=== PATIENT | female | born 1945 | race Caucasian/White ===

== ENCOUNTER → 2016-09-11 | Outpatient (CLI) | payer MEDICARE ==
[~2016-09-11] MED LIST: ACTEMRA IV; APIX5TAB PO; ATIVAN PO; ELIQUIS PO; ENAL20TA PO; FAMO-79 PO; FURO20TA3 PO; FURO40TA6 PO; HYDR-3342 PO; ISOS30TA19 PO; ISOSORBIDE PO; LOPE2CAP PO; LORA-445 PO; METO-93 PO; METO25TA91 PO; METOPROLOL PO; NITR0.4T SL; PANT40TA5 PO; POTA20TA89 PO; PROM12.553 RC; SERT100T PO; SERT50TA PO; SERT50TA5 PO; STOMACH MED PO
== END | disposition home or self-care (01) ==
LOC: CFH 10:47
PROVIDERS: ATTEND Radiology Radiation Oncology
DX: C64.1 Malignant neoplasm of right kidney, except renal pelvis (principal); M48.54XA Collapsed vertebra, not elsewhere classified, thoracic region, initial encounter for fracture; I70.0 Atherosclerosis of aorta; J98.11 Atelectasis; R91.8 Other nonspecific abnormal finding of lung field; N30.90 Cystitis, unspecified without hematuria; I25.10 Atherosclerotic heart disease of native coronary artery without angina pectoris; Z90.710 Acquired absence of both cervix and uterus
CPT/HCPCS: 71250; 74176

== ENCOUNTER → 2016-09-15 | Outpatient (CLI) | payer MEDICARE | END | disposition home or self-care (01) | LOC: ROC 11:41 | PROVIDERS: ATTEND Radiology Radiation Oncology | DX: C64.9 Malignant neoplasm of unspecified kidney, except renal pelvis (principal) | CPT/HCPCS: G0463 ==

== ENCOUNTER → 2017-06-11 | Outpatient (CLI) | payer MEDICARE ==
[~2017-06-11] MED LIST changes: -ISOS30TA19 PO; +ISOS30TA21 PO
== END | disposition home or self-care (01) ==
LOC: CARD 14:12
PROVIDERS: ATTEND Internal Medicine Cardiovascular Disease
DX: I27.20 Pulmonary hypertension, unspecified (principal)
CPT/HCPCS: 94010; 94726; 94729

== ENCOUNTER → 2017-09-07 | Outpatient (CLI) | payer MEDICARE | LOC: ROC 08:01 | PROVIDERS: ATTEND Radiology Radiation Oncology | DX: Z02.9 Encounter for administrative examinations, unspecified (principal) ==